=== PATIENT | male | born 1980 | race Caucasian/White ===

== ENCOUNTER 2024-02-25 18:08 | Emergency (ER) | payer BC, OTHER ==
[2024-02-25 18:46] LABS: BASOPHILS ABSOLUTE AUTO 0.1 K/mm3 (0.0-0.2); BASOPHILS PERCENT AUTO 1.2 % (0.0-1.0); EOSINOPHILS ABSOLUTE AUTO 0.2 K/mm3 (0.0-0.4); EOSINOPHILS PERCENT AUTO 1.3 % (0.0-6.0); HEMATOCRIT 48.6 % (42.0-52.0); HEMOGLOBIN 17.3 gm/dl (14.0-18.0); IMMATURE GRAN ABSOLUTE AUTO 0.06 K/mm3 (0.00-0.05); IMMATURE GRAN PERCENT AUTO 0.5 % (0.0-0.4); LYMPHOCYTES ABSOLUTE AUTO 2.5 K/mm3 (1.0-4.8); LYMPHOCYTES PERCENT AUTO 22.4 % (24.0-44.0); MEAN CORPUSCULAR HEMOGLOBIN 31.6 pg (28.0-32.0); MEAN CORPUSCULAR HGB CONC 35.6 g/dl (32.0-36.0); MEAN CORPUSCULAR VOLUME 88.8 fl (83.0-99.0); MEAN PLATELET VOLUME 10.3 fl (9.4-12.4); MONOCYTES ABSOLUTE AUTO 0.8 K/mm3 (0.0-0.8); MONOCYTES PERCENT AUTO 6.9 % (0.0-8.0); NEUTROPHILS ABSOLUTE AUTO 7.6 K/mm3 (1.8-7.7); NEUTROPHILS PERCENT AUTO 67.7 % (41.0-71.0); PLATELET COUNT,PLT 337 K/mm3 (150-400); RED BLOOD CELL COUNT 5.47 M/mm3 (4.52-5.90); WHITE BLOOD CELL COUNT,WBC 11.16 K/mm3 (3.9-11.3)
[2024-02-25 19:08] LABS: A/G RATIO 1.5 (1-2); ALBUMIN 4.3 g/dl (3.4-5.0); ANION GAP 12.1 (5-15); BILIRUBIN TOTAL 0.5 mg/dL (0.2-1.0); BUN/CREATININE RATIO 22.2 (14-18); C-REACTIVE PROTEIN 0.12 mg/dL (<0.30); CALCIUM 9.3 mg/dL (8.5-10.1); CREATININE 0.9 mg/dL (0.7-1.3); EST CRCL DRUG DOSING (CG) 110.4 mL/min; POTASSIUM,K 4.1 mEq/L (3.5-5.1); PROTEIN TOTAL,TP 7.2 g/dl (6.4-8.2)
[2024-02-25] MEDS: Codeine/guaiFENesin 10-100 MG/5 ML Syrup 5 ML Syringe PO ONE (19:27)
[2024-02-25 19:35] LABS: INR 1.04; PROTHROMBIN TIME 11.1 SECONDS (9.7-12.0)
[2024-02-25] MEDS: Sodium Chloride 0.9% 10 ML Syringe FLUSH ONE (19:44)
[2024-02-25] MEDS: Iopamidol 612 MG/ML 100 ML Bottle IVPUSH ONE (19:44)
[2024-02-25] MEDS: Sodium Chloride 0.9% Inhalation Soln 3 ML Neb INH ONE (19:47)
[2024-02-25 19:54] LABS: CORONAVIRUS COVID-19 NAA NEGATIVE (NEGATIVE); INFLUENZA A NAA NEGATIVE (NEGATIVE); RESPIRATORY SYNCYTIAL VIR NAA NEGATIVE (NEGATIVE)
[2024-02-25] MEDS: Amoxicillin/Clavulanate K 875-125 MG Tab PO ONE (20:54)
[2024-02-25] MEDS: Benzonatate 100 MG Cap PO ONE (20:54)
[2024-02-25] MEDS: predniSONE 20 MG Tab PO ONE (20:54)
== END 2024-02-25 21:00 | disposition home or self-care (01) ==
LOC: JD.ED 18:08
DX: J40 Bronchitis, not specified as acute or chronic (principal); J18.9 Pneumonia, unspecified organism; R04.2 Hemoptysis
CPT/HCPCS: 0241U; 36415; 71046; 71260; 80053; 85025; 85379; 85610; 86140; 94640; 99285; A9270; J3490; J7512; Q9967

== ENCOUNTER 2024-02-26 09:46 | Emergency (ER) | payer BC ==
[2024-02-26] MEDS: HYDROmorphone 0.5 MG/0.5 ML Syringe IVPUSH ONE (10:28)
[2024-02-26] MEDS: Tranexamic Acid 1,000 MG/10 ML Vial IV ONE (10:28)
[2024-02-26] MEDS: Lactated Ringers 1,000 ML IV SCH (10:28)
[2024-02-26] MEDS: Metoclopramide 10 MG/2 ML SDV IVPUSH ONE (10:28)
[2024-02-26] MEDS: Sodium Chloride 0.9% 1,000 ML IV SCH (10:28)
[2024-02-26 10:34] LABS: BASOPHILS ABSOLUTE AUTO 0.1 K/mm3 (0.0-0.2); BASOPHILS PERCENT AUTO 0.4 % (0.0-1.0); EOSINOPHILS PERCENT AUTO 0.1 % (0.0-6.0); HEMATOCRIT 51.7 % (42.0-52.0); HEMOGLOBIN 18.6 gm/dl (14.0-18.0); IMMATURE GRAN ABSOLUTE AUTO 0.08 K/mm3 (0.00-0.05); IMMATURE GRAN PERCENT AUTO 0.5 % (0.0-0.4); LYMPHOCYTES ABSOLUTE AUTO 2.4 K/mm3 (1.0-4.8); LYMPHOCYTES PERCENT AUTO 15.9 % (24.0-44.0); MEAN CORPUSCULAR HEMOGLOBIN 31.6 pg (28.0-32.0); MEAN CORPUSCULAR VOLUME 87.9 fl (83.0-99.0); MEAN PLATELET VOLUME 10.6 fl (9.4-12.4); MONOCYTES ABSOLUTE AUTO 1.3 K/mm3 (0.0-0.8); MONOCYTES PERCENT AUTO 8.6 % (0.0-8.0); NEUTROPHILS ABSOLUTE AUTO 11.3 K/mm3 (1.8-7.7); NEUTROPHILS PERCENT AUTO 74.5 % (41.0-71.0); PLATELET COUNT,PLT 472 K/mm3 (150-400); RED BLOOD CELL COUNT 5.88 M/mm3 (4.52-5.90); WHITE BLOOD CELL COUNT,WBC 15.13 K/mm3 (3.9-11.3)
[2024-02-26 10:36] LABS: A/G RATIO 1.4 (1-2); ALANINE AMINOTRANSFERASE,ALT 50 U/L (16-63); ALBUMIN 4.7 g/dl (3.4-5.0); ALKALINE PHOSPHATASE 64 U/L (46-116); ANION GAP 17.2 (5-15); ASPARTATE AMNIOTRANSFERASE,AST 31 U/L (15-37); BILIRUBIN TOTAL 0.7 mg/dL (0.2-1.0); BLOOD UREA NITROGEN,BUN 23 mg/dL (7-18); BUN/CREATININE RATIO 19.2 (14-18); C-REACTIVE PROTEIN 0.09 mg/dL (<0.30); CALCIUM 10.2 mg/dL (8.5-10.1); CARBON DIOXIDE,CO2 26 mEq/L (21-32); CHLORIDE,CL 103 mEq/L (98-107); CREATININE 1.2 mg/dL (0.7-1.3); ESTIMATED GFR 77 mL/min (>60); GLUCOSE RANDOM 153 mg/dL (70-99); LACTATE DEHYDROGENASE,LDH 241 U/L (85-227); MAGNESIUM 2.3 mg/dL (1.8-2.4); POTASSIUM,K 4.2 mEq/L (3.5-5.1); SODIUM,NA 142 mEq/L (136-145)
[2024-02-26 10:45] LABS: INR 1.03
[2024-02-26 10:50] LABS: LACTIC ACID 1.7 mmol/L (0.4-2.0)
[2024-02-26] MEDS: Iopamidol 612 MG/ML 100 ML Bottle IVPUSH ONE (11:00)
[2024-02-26] MEDS: Sodium Chloride 0.9% 10 ML Syringe FLUSH PRN (11:02)
[2024-02-27] MEDS ORDERED: Sodium Chloride 0.9% 1,000 ML IV ONE (07:53)
[2024-02-27] MEDS ORDERED: Lactated Ringers 1,000 ML IV SCH (08:00)
== END 2024-02-26 15:20 ==
LOC: JD.ED 09:46
DX: R04.2 Hemoptysis (principal)
CPT/HCPCS: 36415; 71260; 80053; 83605; 83615; 83735; 85025; 85610; 85730; 86140; 86850; 86900; 86901; 86922; 93005; 96361; 96374; 96375; 99285; J1170; J2765; J3490; J7030; J7120; Q9967